=== PATIENT | female | born 1960 | race Caucasian/White ===

== ENCOUNTER 2020-04-09 17:23 | Emergency (ER) | payer OTHER ==
[~2020-04-09] VITALS: Ht 165.1 cm; Wt 70.8 kg
[2020-04-09] MEDS ORDERED: Omnipaque-300 100ml vial INJ PRN (17:45)
--- NOTE | 2020-04-09 17:49 | Emergency Room Report ---
History of Present Illness General Chief Complaint: Abdominal Pain Source: Patient Present Illness HPI Disclaimer: Please note that this report is being documented using DRAGON technology. This can lead to erroneous entry secondary to incorrect interpretation by the dictating instrument. HPI: 59-year-old female referred to the emergency department by PMD for evaluation of diverticulitis. She has been having epigastric discomfort she describes as burning after eating for the past several months. It usually is relieved by rest and drinking water. She has not been put on antacids yet. Over the past few weeks she has had lower abdominal intermittent cramping without bloody stools. She has dark stools but was recently put on iron supplements. She was also started on stool softeners recently and therefore reports loose stools but no deepika diarrhea. Denies fever, chills, vomiting. No history of intra-abdominal surgeries. PMH: Hypothyroidism PSH: Thyroidectomy partial Allergies: Sulfa medications Social Hx: Reviewed Allergies: Coded Allergies: SULFA (SULFONAMIDE ANTIBIOTICS) (Unverified Allergy, Unknown, 04/09/20) Uncoded Allergies: SULFA ABX (Allergy, Unknown, 04/09/20) COVID-19 Screening Contact w/high risk pt: No Experienced COVID-19 symptoms?: No COVID-19 Testing performed DEVELOPMENT TEAM LEAD: No Patient History Last Menstrual Period: na Nursing Documentation-[facility] Past Medical History: No History, Except For Review of Systems All Other Systems: negative except mentioned in HPI Physical Exam Vital Signs Date Time Temp Pulse Resp B/P (MAP) Pulse Ox O2 Delivery O2 Flow Rate FiO2 04/09/20 17:29 98.4 93 17 144/85 (104) 98 Room Air General: Awake and alert, no acute distress HEENT: NC/AT. EOMI. Cardiovascular: RRR. S1 and S2 normal. No murmur appreciated Resp: Normal work of breathing. No cough, wheezing or crackles appreciated Abdomen: Abdomen is soft, nondistended. Nonspecific and diffuse tenderness in the abdomen without peritoneal signs. No rebound, no guarding. Stool is dark. No bright red blood. FOBT negative. Skin: Intact. No abrasions, laceration or rash over the exposed skin MSK: Normal tone and bulk. Moving all extremities. No obvious deformity. Neuro: Awake and alert. Mentating appropriately. Medical Decision Making Diagnostic Impression: Primary Impression: Diverticulitis ER Course This a 59-year-old female referred to emergency department from PMD office over concern of diverticulitis. Also on differential GERD, esophagitis, pancreatitis , cholecystitis, bowel obstruction, hernia, appendicitis, UTI, pyelonephritis, mesenteric ischemia to name a few. Labs were obtained and returned within normal limits. CT scan did show uncomplicated diverticulitis. FOBT was negative. No other significant findings. Patient's upper GI symptoms resolved after GI cocktail. She will be started on Maalox, famotidine and referred for EGD which can be arranged by her PMD. CT scan report and labs were included in discharge paperwork. Encouraged to follow-up on colonoscopy as well though she states she had 1 4 years ago. She will discuss whether or not she requires one with her PMD. Patient started on Augmentin first dose given in the emergency department. Stable for outpatient follow-up. Discussed reasons to return to the ED; she understands and agrees with this treatment plan. Laboratory Tests Test 04/09/20 18:05 White Blood Count 9.7 K/UL (4.8-10.8) Red Blood Count 3.90 M/UL (4.20-5.40) L Hemoglobin 12.9 G/DL (12.0-16.0) Hematocrit 37.8 % (37.0-47.0) Mean Corpuscular Volume 97 FL (80-99) Mean Corpuscular Hemoglobin 33.0 PG (27.0-31.0) H Mean Corpuscular Hemoglobin Concent 34.0 G/DL (32.0-36.0) Red Cell Distribution Width 11.7 % (11.6-14.8) Platelet Count 327 K/UL (150-450) Mean Platelet Volume 6.4 FL (6.5-10.1) L Neutrophils (%) (Auto) 60.2 % (45.0-75.0) Lymphocytes (%) (Auto) 27.6 % (20.0-45.0) Monocytes (%) (Auto) 10.7 % (1.0-10.0) H Eosinophils (%) (Auto) 0.6 % (0.0-3.0) Basophils (%) (Auto) 1.0 % (0.0-2.0) Urine Color Pale yellow Urine Appearance Clear Urine pH 7 (4.5-8.0) Urine Specific [place] 1.010 (1.005-1.035) Urine Protein 1+ (NEGATIVE) H Urine Glucose (UA) Negative (NEGATIVE) Urine Ketones Negative (NEGATIVE) Urine Blood 2+ (NEGATIVE) H Urine Nitrite Negative (NEGATIVE) Urine Bilirubin Negative (NEGATIVE) Urine Urobilinogen Normal MG/DL (0.0-1.0) Urine Leukocyte Esterase 1+ (NEGATIVE) H Urine RBC 2-4 /HPF (0 - 2) H Urine WBC 0-2 /HPF (0 - 2) Urine Squamous Epithelial Cells Few /LPF (NONE/OCC) Urine Bacteria Few /HPF (NONE) Sodium Level 138 MMOL/L (136-145) Potassium Level 3.5 MMOL/L (3.5-5.1) Chloride Level 101 MMOL/L (98-107) Carbon Dioxide Level 28 MMOL/L (21-32) Anion Gap 9 mmol/L (5-15) Blood Urea Nitrogen 8 mg/dL (7-18) Creatinine 0.8 MG/DL (0.55-1.30) Estimated Glomerular Filtration Rate > 60 mL/min (>60) Glucose Level 91 MG/DL (74-106) Calcium Level 9.1 MG/DL (8.5-10.1) Total Bilirubin 0.4 MG/DL (0.2-1.0) Aspartate Amino Transferase (AST) 14 U/L (15-37) L Alanine Aminotransferase (ALT) 11 U/L (12-78) L Alkaline Phosphatase 98 U/L (46-116) Total Protein 7.7 G/DL (6.4-8.2) Albumin 3.6 G/DL (3.4-5.0) Globulin 4.1 g/dL Albumin/Globulin Ratio 0.9 (1.0-2.7) L Lipase 122 U/L (73-393) CT/MRI/US Diagnostic Results CT/MRI/US Diagnostic Results : Impression IMPRESSION: 1. Uncomplicated sigmoid diverticulitis without abscess or deepika perforation. 2. Recommend outpatient follow-up colonoscopy to exclude colonic neoplasm. 3. Contrast opacified urine in the collecting systems. Dictated By: Morales More MD Electronically Signed By: Morales More MD Signed Date/Time 04/09/20 7123 CC: Magan Beck MD Last Vital Signs Date Time Temp Pulse Resp B/P (MAP) Pulse Ox O2 Delivery O2 Flow Rate FiO2 04/09/20 17:29 98.4 93 17 144/85 (104) 98 Room Air Disposition: HOME, SELF-CARE Condition: Stable Scripts Mag Hydrox/Al Hydrox/Simeth (MAALOX MAXIMUM STRENGTH SUSP) 355 Ml Oral.susp 355 ML PO TID, #355 ML Prov: Magan Beck MD 04/09/20 Famotidine* (Pepcid 20mg tablet*) 20 Mg Tablet 20 MG ORAL DAILY, #30 TAB 0 Refills Prov: Magan Beck MD 04/09/20 Amoxicillin/Potassium Clav 875-125* (AUGMENTIN 875-125 TABLET*) 1 Each Tablet 1 TAB ORAL TID for 10 Days, #30 TAB Prov: Magan Beck MD 04/09/20 Magan Beck MD Apr 09, 2020 17:49
[2020-04-09] MEDS ORDERED: Mylanta II UD 30ml ORAL ONE (18:00)
[2020-04-09] MEDS ORDERED: Lidocaine 2% Visc 15ml soln ORAL ONE (18:00)
[2020-04-09] MEDS ORDERED: Dicyclomine HCl 10mg/5ml oral soln ORAL ONE (18:00)
[2020-04-09 18:25] LABS: APPEARANCE,URINE CLEAR; BILIRUBIN, URINE NEGATIVE (NEGATIVE); COLOR,URINE PALE YELLOW; GLUCOSE, URINE (UA) NEGATIVE (NEGATIVE); KETONES,URINE NEGATIVE (NEGATIVE); LEUKOCYTE ESTERASE ,URINE 1+ (NEGATIVE); NITRITE,URINE NEGATIVE (NEGATIVE); PH,URINE 7 (4.5-8.0); PROTEIN,URINE 1+ (NEGATIVE); UROBILINOGEN,URINE NORMAL MG/DL (0.0-1.0)
[2020-04-09 18:28] LABS: ANION GAP 9 mmol/L (5-15); BLOOD UREA NITROGEN 8 mg/dL (7-18); CALCIUM 9.1 MG/DL (8.5-10.1); CARBON DIOXIDE 28 MMOL/L (21-32); CHLORIDE 101 MMOL/L (98-107); CREATININE 0.8 MG/DL (0.55-1.30); POTASSIUM 3.5 MMOL/L (3.5-5.1); SODIUM 138 MMOL/L (136-145)
[2020-04-09 18:32] LABS: EOSINOPHILS % (AUTO) 0.6 % (0.0-3.0); HEMATOCRIT 37.8 % (37.0-47.0); HEMOGLOBIN 12.9 G/DL (12.0-16.0); LYMPHOCYTES % (AUTO) 27.6 % (20.0-45.0); MEAN CORPUSCULAR VOLUME 97 FL (80-99); MONOCYTES % (AUTO) 10.7 % (1.0-10.0); NEUTROPHILS % (AUTO) 60.2 % (45.0-75.0); PLATELET COUNT 327 K/UL (150-450); RED CELL DISTRIBUTION WIDTH 11.7 % (11.6-14.8); WHITE BLOOD COUNT 9.7 K/UL (4.8-10.8)
[2020-04-09 18:33] LABS: ALANINE AMINOTRANSFERASE 11 U/L (12-78); ALBUMIN 3.6 G/DL (3.4-5.0); ALBUMIN/GLOBULIN RATIO 0.9 (1.0-2.7); ALKALINE PHOSPHATASE 98 U/L (46-116); ASPARTATE AMINO TRANSFERASE 14 U/L (15-37); BILIRUBIN,TOTAL 0.4 MG/DL (0.2-1.0)
[2020-04-09 18:56] VITALS: BP 144/85
--- NOTE | 2020-04-09 19:03 | Diagnostic Imaging Report ---
EXAM: CT Abdomen and Pelvis With Intravenous Contrast CLINICAL HISTORY: ABD PAIN TECHNIQUE: Axial computed tomography images of the abdomen and pelvis with intravenous contrast. CTDI is 5.4 mGy and DLP is 284.2 mGy-cm. One or more of the following dose reduction techniques were used: automated exposure control, adjustment of the mA and/or kV according to patient size, use of iterative reconstruction technique. Coronal and sagittal reformatted images were created and reviewed. COMPARISON: No relevant prior studies available. FINDINGS: Lung bases: Contrast opacified urine in the collecting systems. ABDOMEN: Liver: Unremarkable. No mass. Gallbladder and bile ducts: Unremarkable. No calcified stones. No ductal dilation. Pancreas: Unremarkable. No mass. No ductal dilation. Spleen: Unremarkable. No splenomegaly. Adrenals: Unremarkable. No mass. Kidneys and ureters: Subcentimeter left renal hypodensity likely represent benign cyst requiring additional follow-up. Otherwise unremarkable kidneys. No hydronephrosis. Stomach and bowel: Uncomplicated sigmoid diverticulitis without abscess or deepika perforation. Recommend outpatient follow-up colonoscopy to exclude colonic neoplasm. No obstruction. PELVIS: Appendix: No findings to suggest acute appendicitis. Bladder: Unremarkable. No mass. Reproductive: Unremarkable as visualized. ABDOMEN and PELVIS: Intraperitoneal space: Unremarkable. No free air. No significant fluid collection. Bones/joints: No acute fracture. No dislocation. Soft tissues: Unremarkable. Vasculature: Unremarkable. No abdominal aortic aneurysm. Lymph nodes: Unremarkable. No enlarged lymph nodes. IMPRESSION: 1. Uncomplicated sigmoid diverticulitis without abscess or deepika perforation. 2. Recommend outpatient follow-up colonoscopy to exclude colonic neoplasm. 3. Contrast opacified urine in the collecting systems.
[2020-04-09] MEDS ORDERED: AUGMENTIN 875-1 EAC1 ORAL (19:34)
[2020-04-09] MEDS ORDERED: FAMOTIDINE20 MG ORAL (19:34)
[2020-04-09] MEDS ORDERED: MAALOX MAXIMUM355 M1 PO (19:34)
[2020-04-09 19:40] VITALS: BP 135/98
[2020-04-09] MEDS ORDERED: Augmentin 875mg Tab ORAL ONE (19:45)
== END 2020-04-09 19:40 | disposition home or self-care (01) ==
LOC: EMR 19:30
DX: K57.92 Diverticulitis of intestine, part unspecified, without perforation or abscess without bleeding (principal); Z88.2 Allergy status to sulfonamides; E03.9 Hypothyroidism, unspecified; Z98.890 Other specified postprocedural states
CPT/HCPCS: 36415; 74177; 80053; 81003; 83690; 85025; 96360; 99284; J7030; Q9965